=== PATIENT | male | born 1955 | race Caucasian/White ===

== ENCOUNTER 2017-10-22 01:41 | Emergency (ER) | payer BC, OTHER ==
[2017-10-22 02:20] LABS: #Eosinphils 0.1 thou/uL (0.0-0.7); #Lymphocytes 1.4 thou/uL (1.20-3.40); #Neutrophils 10.2 thou/uL (1.40-6.50); %Basophils 0.3 % (0.0-1.0); %Eosinophils 0.4 % (0.0-10.0); %Lymphocytes 11.3 % (21.0-51.0); %Monocytes 8.1 % (0.0-10.0); %Neutrophils 79.8 % (42.0-75.0); Hemoglobin 13.3 g/dL (14.0-18.0); Mean Corpuscular HGB CONC 33.8 g/dL (32.0-36.0); Mean Corpuscular Hemoglobin 30.7 pg (27.0-31.0); Mean Corpuscular Volume 90.6 fl (80.0-94.0); Mean Platelet Volume 8.8 fL (7.4-10.4); Platelet Count 184 thou/uL (130-400); RBC Distribution Width 13.6 % (11.5-14.5); Red Blood Cell (RBC) Count 4.34 mill/uL (4.70-6.10); White Blood Cell (WBC) Count 12.8 thou/uL (4.8-10.8)
[2017-10-22 02:28] LABS: INR-International Normal Ratio 1.1; PTT 33.3 SEC (22.9-36.1); Prothrombin Time 14.4 SEC (12.0-14.7)
[2017-10-22 02:39] LABS: ALT (SGPT) 15 U/L (8-55); AST (SGOT) 15 U/L (5-34); Albumin 4.1 g/dL (3.4-4.8); Alkaline Phosphatase 82 U/L (40-150); Anion Gap 12 mmol/L (10-20); BUN (Urea Nitrogen) 22 mg/dL (8.4-25.7); Bilirubin, Total 0.6 mg/dL (0.2-1.2); Calc. Creatinine Clearance 0 mL/min (70-130); Calcium 9.2 mg/dL (7.8-10.44); Carbon Dioxide 26 mmol/L (23-31); Chloride 102 mmol/L (98-107); Estimated GFR-MDRD 48; Globulin 3.2 g/dL (2.4-3.5); Glucose 167 mg/dL (80-115); Potassium 4.1 mmol/L (3.5-5.1); Protein, Total 7.3 g/dL (5.8-8.1); Sodium 136 mmol/L (136-145)
[2017-10-22 03:10] LABS: Bilirubin Negative (Negative); Blood, Urine Small (Negative); Clarity CLEAR (Clear); Glucose, Urine (Dipstick) Negative (Negative); Leukocyte Small (Negative); Nitrite Negative (Negative); Protein, Urine (Dipstick) Negative (Neg-Trace); Specific Gravity, Urine 1.019 (1.002-1.036); Urobilinogen 0.2 mg/dL (0.2-1.0)
[2017-10-22 03:12] LABS: Bacteria/HPF None Seen HPF (None Seen); Hyaline Casts/LPF 0-3 HYALINE CAST LPF (0-3 Hyaline); Squamous Epithelial None Seen HPF (0-3)
--- NOTE | 2017-10-22 07:46 | RAD ---
ABDOMEN 1 VIEW: HISTORY: Kidney stone. COMPARISON: None. FINDINGS: Catheter projects over the pelvis. Multiple calcifications projecting over the left renal shadow and right renal shadow with casting. IMPRESSION: 1. Findings suggestive of bilateral renal calculi. 2. No evidence of bowel obstruction. 3. Catheter projecting over the pelvis. POS: EDUARDO
== END 2017-10-22 03:35 | disposition home or self-care (01) ==
LOC: ERS 01:41
DX: N13.2 Hydronephrosis with renal and ureteral calculous obstruction (principal); I10 Essential (primary) hypertension; F32.9 Major depressive disorder, single episode, unspecified; Z87.891 Personal history of nicotine dependence; Z79.84 Long term (current) use of oral hypoglycemic drugs; Z79.899 Other long term (current) drug therapy
CPT/HCPCS: 36415; 74018; 80053; 81003; 81015; 85025; 85610; 85730; 87086

== ENCOUNTER 2023-12-17 08:00 | Inpatient (IN) | payer OTHER ==
[2023-12-20] MEDS ORDERED: Dexamethasone 4 mg/ml Vial ONE (07:02)
[2023-12-20] MEDS ORDERED: Bupivacaine PF 0.5% 30 ML VIAL ONE (07:02)
[2023-12-20] MEDS ORDERED: EPINEPHrine 1 MG/ML VIAL ONE (07:02)
[2023-12-20] MEDS ORDERED: Albumin 5% 500 ML ONE (07:02)
[2023-12-20] MEDS ORDERED: Heparin 10,000 UNITS/1 ML VIAL 30,000 UNITS in Sodium Chloride 0.9% 1,000 ML FS SCH (07:15)
[2023-12-20] MEDS ORDERED: Rocuronium Bromide 10 MG/ML (10ML VIAL) ONE ×2 (08:08→10:17)
[2023-12-20] MEDS ORDERED: Midazolam HCl 2 mg/2 ml Vial ONE ×3 (08:08→10:09)
[2023-12-20] MEDS ORDERED: Fentanyl 250 MCG/5 ML VIAL ONE (08:08)
[2023-12-20] MEDS ORDERED: PROPOFOL 20 ML ONE (08:08)
[2023-12-20] MEDS ORDERED: Thrombin 5000 UNITS/5 ML VIAL ONE (08:30)
[2023-12-20] MEDS ORDERED: Heparin 30,000 units/30 ml VIAL ONE (08:30)
[2023-12-20] MEDS ORDERED: Papaverine 60 MG/2 ML VIAL ONE (08:30)
[2023-12-20] MEDS ORDERED: Mannitol 12.5 GM/50 ML ONE (08:30)
[2023-12-20] MEDS ORDERED: Aminocaproic Acid 5 GM/20 ML VIAL ONE (08:30)
[2023-12-20] MEDS ORDERED: Potassium Chloride 60 mEq (30 mL) VIAL ONE (08:30)
[2023-12-20] MEDS ORDERED: Lidocaine 2% PF 100 mg/5 ml Syringe ONE (08:30)
[2023-12-20] MEDS ORDERED: Calcium Chloride 1 GM/10 ML Abboject SYRINGE ONE (08:30)
[2023-12-20] MEDS ORDERED: Cardioplegic Soln 1,000 ML BAG ONE (08:30)
[2023-12-20] MEDS ORDERED: Protamine Sulfate 250 MG/25 ML VIAL ONE (08:30)
[2023-12-20] MEDS ORDERED: Magnesium 5 GM/10 ML VIAL ONE (08:30)
[2023-12-20] MEDS ORDERED: Heparin 5,000 UNITS/ML VIAL ONE (08:30)
[2023-12-20] MEDS ORDERED: Sodium Bicarb 50 mEq/50 ML VIAL ONE (08:30)
[2023-12-20] MEDS ORDERED: Vancomycin 1 GM VIAL ONE (08:30)
[2023-12-20] MEDS ORDERED: CEFAZOLIN 1 GM VIAL ONE ×2 (08:40)
[2023-12-20] MEDS ORDERED: Labetalol HCl 100 MG/20 ML VIAL ONE ×2 (08:45→08:47)
[2023-12-20] MEDS ORDERED: PHENYLEPHRINE-NS 100 MCG/ML 10 ML SYRINGE ONE (08:46)
[2023-12-20] MEDS ORDERED: Phenylephrine 10 MG/ML VIAL ONE ×2 (08:46→09:44)
[2023-12-20] MEDS ORDERED: Heparin 10,000 UNITS/ 10 ML VIAL ONE (09:26)
[2023-12-20] MEDS ORDERED: Sodium Chloride 0.9% 100 ML ONE ×2 (09:44→12:12)
[2023-12-20] MEDS ORDERED: Insulin Regular 300 UNITS/3 ML VIAL ONE (11:04)
[2023-12-20] MEDS ORDERED: Ondansetron PF 4 MG/2 ML Vial ONE (12:13)
[2023-12-20] MEDS ORDERED: Ondansetron PF 4 MG/2 ML Vial IVP PRN (13:04)
[2023-12-20] MEDS ORDERED: Mag-Al 1200 mg/1200 mg/30 ML UDCUP PO PRN (13:04)
[2023-12-20] MEDS ORDERED: Bisacodyl 5 MG TAB PO PRN (13:04)
[2023-12-20] MEDS ORDERED: fentaNYL 50 mcg/mL 1 mL Vial SLOW IVP PRN (13:04)
[2023-12-20] MEDS ORDERED: Ipratropium/Albuterol 3 ML NEB NEB PRN (13:04)
[2023-12-20] MEDS ORDERED: Albumin 5% 12.5 GM (250 mL) BOT IVPB PRN (13:04)
[2023-12-20] MEDS ORDERED: HYDROcodone/Acetaminophen 5/325 mg Tablet PO PRN ×2 (13:04)
[2023-12-20] MEDS ORDERED: hydrALAZINE 20 MG/ML VIAL SLOW IVP PRN (13:04)
[2023-12-20] MEDS ORDERED: Promethazine HCl 25 MG/ML VIAL IM PRN (13:04)
[2023-12-20] MEDS ORDERED: Bisacodyl 10 MG SUPP PR PRN (13:04)
[2023-12-20] MEDS ORDERED: Guaifenesin DM 100-10/5 ML UDCUP PO PRN (13:04)
[2023-12-20 13:27] LABS: Base Excess (BEa) -6.5 mEq/L (-2.0 to +3.0); CO2 Tension 44.5 mmHg (35.0-45.0); Calcium, Ionized (arterial) 1.11 mmol/L (1.12-1.30); Carboxyhemoglobin (COHb) 0.6 gm% (0.0-3.0); Hematocrit-ABG 26 % (42.0-52.0); Hemoglobin (Hb) 8.9 g/dL (14.0-18.0); O2 Tension (PaO2), arterial 103.8 mmHg (> 70.0); Potassium - ABG Lab 4.15 mmol/L (3.70-5.30); pH, Arterial 7.271 (7.35-7.45)
[2023-12-20 13:29] LABS: Puncture Site Arterial Line
[2023-12-20 13:30] LABS: ALV-art Gradient 268.375 mmHg (0-20)
[2023-12-20] MEDS ORDERED: Glucagon 1 MG/ML KIT SC PRN (13:30)
[2023-12-20] MEDS ORDERED: Dextrose 50% Abboject 50 ML SYRINGE SLOW IVP PRN (13:30)
[2023-12-20] MEDS ORDERED: Dextrose 5% in Water 1,000 ML IV PRN (13:30)
[2023-12-20] MEDS: Albumin 5% 12.5 GM (250 mL) BOT IVPB PRN (13:35)
[2023-12-20 13:42] LABS: #Basophils 0.06 10x3/uL (0.0-0.2); %Basophils 0.4 % (0.0-1.0); %Eosinophils 0.7 % (0.0-10.0); %Lymphocytes 8.3 % (21.0-51.0); %Monocytes 10.7 % (0.0-10.0); %Neutrophils 77.7 % (42.0-75.0); Hematocrit 25.6 % (42.0-52.0); Hemoglobin 8.2 g/dL (14.0-18.0); Mean Corpuscular Hemoglobin 28.5 pg (27.0-31.0); Mean Corpuscular Volume 88.9 fL (78.0-98.0); Mean Platelet Volume 10.7 fL (7.4-10.4); Platelet Count 170 10x3/uL (130-400); RBC Distribution Width 14.8 % (11.5-14.5); Red Blood Cell (RBC) Count 2.88 mill/uL (4.70-6.10)
[2023-12-20] MEDS: NOREPINEPHRINE 8 MG/250 ML-D5W 250 ML IVPB PRN (13:45)
[2023-12-20] MEDS: Insulin Regular 300 UNITS/3 ML VIAL SC PRN (13:46)
[2023-12-20] MEDS: Magnesium 2 GM/50 ML(in water) 2 GM in Premix 1 BAG IVPB SCH (13:46)
[2023-12-20] MEDS: Sodium Chloride 0.9% 1,000 ML IV SCH (13:52)
[2023-12-20 14:02] LABS: INR-International Normal Ratio 1.4; Prothrombin Time 17.4 sec (12.0-14.7)
[2023-12-20 14:03] LABS: PTT 32.1 sec (22.9-36.1)
[2023-12-20 14:04] LABS: Anion Gap 9 mmol/L (10-20); BUN (Urea Nitrogen) 19 mg/dL (8.4-25.7); Calc. Creatinine Clearance 102 mL/min (70-130); Calcium 7.3 mg/dL (7.8-10.44); Carbon Dioxide 20 mmol/L (23-31); Chloride 115 mmol/L (98-107); Estimated GFR 86; Glucose 157 mg/dL (80-115); Potassium 4.2 mmol/L (3.5-5.1); Sodium 140 mmol/L (136-145)
[2023-12-20] MEDS: Acetaminophen 325 MG TAB PO SCH (15:23)
[2023-12-20] MEDS: Aspirin Chewable 81 MG TAB PO SCH (15:23)
[2023-12-20] MEDS: CEFAZOLIN 2 GM in Sodium Chloride 0.9% 100 ML IVPB SCH (16:28)
[2023-12-20] MEDS: Morphine 2 MG/ML VIAL SLOW IVP PRN (16:28)
[2023-12-20] MEDS: HUMULIN R 100 UNITS in Sodium Chloride 0.9% 100 ML IVPB SCH (16:40)
[2023-12-20 19:26] LABS: Actual Bicarbonate (HCO3a) 17.2 mEq/L (22-28); Base Excess (BEa) -8.1 mEq/L (-2.0 to +3.0); CO2 Tension 34.5 mmHg (35.0-45.0); Carboxyhemoglobin (COHb) 0.5 gm% (0.0-3.0); Hematocrit-ABG 26 % (42.0-52.0); O2 Tension (PaO2), arterial 141.8 mmHg (> 70.0); Potassium - ABG Lab 4.34 mmol/L (3.70-5.30); pH, Arterial 7.316 (7.35-7.45)
[2023-12-20 19:28] LABS: Puncture Site LINE
[2023-12-20 19:29] LABS: ALV-art Gradient 100.275 mmHg (0-20)
[2023-12-20 19:32] LABS: Hematocrit 25.9 % (42.0-52.0); Hemoglobin 8.1 g/dL (14.0-18.0)
[2023-12-20 19:39] LABS: Potassium 4.3 mmol/L (3.5-5.1)
[2023-12-20] MEDS: Post-Op Insulin Drip Protocol IVPB ONE (19:47)
[2023-12-20] MEDS: Sodium Bicarb 50 mEq/50 ML VIAL IVP SCH (19:50)
[2023-12-20] MEDS: fentaNYL 50 mcg/mL 1 mL Vial SLOW IVP PRN (20:19)
[2023-12-20] MEDS: Atorvastatin Calcium 20 MG TAB PO SCH (20:38)
[2023-12-20] MEDS: Famotidine/PF 20 mg/2ml Vial SLOW IVP SCH (20:59)
[2023-12-20 21:45] LABS: Actual Bicarbonate (HCO3a) 20.3 mEq/L (22-28); Base Excess (BEa) -3.9 mEq/L (-2.0 to +3.0); CO2 Tension 33.6 mmHg (35.0-45.0); Calcium, Ionized (arterial) 1.07 mmol/L (1.12-1.30); Carboxyhemoglobin (COHb) 0.7 gm% (0.0-3.0); Hematocrit-ABG 26 % (42.0-52.0); Hemoglobin (Hb) 8.7 g/dL (14.0-18.0); O2 Tension (PaO2), arterial 123.5 mmHg (> 70.0); Potassium - ABG Lab 4.15 mmol/L (3.70-5.30)
[2023-12-20 21:46] LABS: Puncture Site LINE
[2023-12-21] MEDS: Ketorolac Tromethamine 30 MG (1 mL) VIAL IVP SCH (05:58)
[2023-12-21 06:02] LABS: #Basophils Less than 0.03 10x3/uL (0.0-0.2); #Eosinphils Less than 0.03 10x3/uL (0.0-0.7); %Basophils 0.1 % (0.0-1.0); %Lymphocytes 5.4 % (21.0-51.0); %Monocytes 9.6 % (0.0-10.0); %Neutrophils 84.1 % (42.0-75.0); Hematocrit 23.7 % (42.0-52.0); Hemoglobin 7.6 g/dL (14.0-18.0); Mean Corpuscular HGB CONC 32.1 g/dL (32.0-36.0); Mean Corpuscular Volume 90.5 fL (78.0-98.0); Mean Platelet Volume 11.1 fL (7.4-10.4); Platelet Count 157 10x3/uL (130-400); RBC Distribution Width 14.8 % (11.5-14.5); Red Blood Cell (RBC) Count 2.62 mill/uL (4.70-6.10)
[2023-12-21 06:16] LABS: Anion Gap 13 mmol/L (10-20); BUN (Urea Nitrogen) 16 mg/dL (8.4-25.7); Calc. Creatinine Clearance 118 mL/min (70-130); Calcium 7.8 mg/dL (7.8-10.44); Carbon Dioxide 21 mmol/L (23-31); Chloride 111 mmol/L (98-107); Estimated GFR 93; Glucose 125 mg/dL (80-115); Sodium 141 mmol/L (136-145)
[2023-12-21] MEDS: Potassium Chloride 20 MEQ (100 mL) BAG IVPB PRN (06:45)
[2023-12-21] MEDS: Heparin 5,000 UNITS/ML VIAL SC SCH (07:28)
[2023-12-21] MEDS: Ezetimibe 10 MG TAB PO SCH (08:06)
[2023-12-21] MEDS: Aspirin 325 MG TAB PO SCH (08:07)
[2023-12-21] MEDS: BuPROPion XL 150 MG ER.TAB PO SCH (08:07)
[2023-12-21] MEDS: Tamsulosin HCl 0.4 MG CAP PO SCH (08:07)
[2023-12-21] MEDS: Magnesium 2 GM/50 ML(in water) 2 GM in Premix 1 BAG IVPB SCH (08:08)
[2023-12-21] MEDS: Insulin Glargine 30 UNITS/0.3 ML VIAL SC SCH (08:56)
[2023-12-21 09:02] VITALS: BMI 35.2
[2023-12-21] MEDS: Famotidine 20 MG TAB PO SCH (22:25)
[2023-12-22 04:45] LABS: #Basophils 0.03 10x3/uL (0.0-0.2); #Eosinphils Less than 0.03 10x3/uL (0.0-0.7); %Basophils 0.3 % (0.0-1.0); %Eosinophils 0.1 % (0.0-10.0); %Lymphocytes 10.8 % (21.0-51.0); %Monocytes 14.7 % (0.0-10.0); %Neutrophils 73.4 % (42.0-75.0); Hematocrit 22.6 % (42.0-52.0); Hemoglobin 7.1 g/dL (14.0-18.0); Mean Corpuscular HGB CONC 31.4 g/dL (32.0-36.0); Mean Corpuscular Hemoglobin 28.3 pg (27.0-31.0); Mean Platelet Volume 11.5 fL (7.4-10.4); Platelet Count 149 10x3/uL (130-400); RBC Distribution Width 15.1 % (11.5-14.5); Red Blood Cell (RBC) Count 2.51 mill/uL (4.70-6.10)
[2023-12-22 04:48] LABS: Anion Gap 11 mmol/L (10-20); BUN (Urea Nitrogen) 25 mg/dL (8.4-25.7); Calc. Creatinine Clearance 94 mL/min (70-130); Calcium 8.1 mg/dL (7.8-10.44); Carbon Dioxide 21 mmol/L (23-31); Chloride 110 mmol/L (98-107); Estimated GFR 76; Glucose 189 mg/dL (80-115); Sodium 138 mmol/L (136-145)
[2023-12-22] MEDS: Furosemide 20 MG (2 mL) VIAL SLOW IVP SCH ×2 (11:41→14:52)
[2023-12-22] MEDS: metFORMIN 500 MG TAB PO SCH (16:53)
[2023-12-22] MEDS: Metoprolol Tartrate 25 MG TAB PO SCH (21:23)
[2023-12-22] MEDS: Gabapentin 300 MG CAP PO SCH (21:23)
[2023-12-23 05:08] LABS: #Basophils 0.03 10x3/uL (0.0-0.2); %Basophils 0.3 % (0.0-1.0); %Eosinophils 1.6 % (0.0-10.0); %Lymphocytes 13.1 % (21.0-51.0); %Monocytes 13.9 % (0.0-10.0); %Neutrophils 70.3 % (42.0-75.0); Hematocrit 23.4 % (42.0-52.0); Hemoglobin 7.4 g/dL (14.0-18.0); Mean Corpuscular HGB CONC 31.6 g/dL (32.0-36.0); Mean Corpuscular Hemoglobin 28.1 pg (27.0-31.0); Mean Platelet Volume 11.3 fL (7.4-10.4); Platelet Count 173 10x3/uL (130-400); RBC Distribution Width 14.9 % (11.5-14.5); Red Blood Cell (RBC) Count 2.63 mill/uL (4.70-6.10)
[2023-12-23 05:19] LABS: Anion Gap 13 mmol/L (10-20); BUN (Urea Nitrogen) 32 mg/dL (8.4-25.7); Calc. Creatinine Clearance 88 mL/min (70-130); Calcium 8.2 mg/dL (7.8-10.44); Carbon Dioxide 22 mmol/L (23-31); Chloride 108 mmol/L (98-107); Estimated GFR 68; Glucose 129 mg/dL (80-115); Potassium 3.8 mmol/L (3.5-5.1); Sodium 139 mmol/L (136-145)
[2023-12-23] MEDS: glipiZIDE XL 10 mg ER.TAB PO SCH (08:58)
[2023-12-23] MEDS: Cyanocobalamin (Vitamin B-12) 1,000 MCG TAB PO SCH (08:59)
[2023-12-23] MEDS: Ferrous Sulfate 325 MG TAB PO SCH (09:00)
[2023-12-23] MEDS: Amiodarone 200 MG TAB PO SCH ×2 (16:37→20:56)
[2023-12-24 11:47] VITALS: BP 121/55; TEMP 97.9
== END 2023-12-24 12:13 | disposition home or self-care (01) | DRG 236 ==
LOC: SURG A 12-20 06:52 → EDSTATUS 12-20 08:00 → CCU 12-20 12:33 → 2NO 12-21 15:10
PROVIDERS: ADMIT Student in an Organized Health Care Education/Training Program; ATTEND Student in an Organized Health Care Education/Training Program
PROC: 02100Z9 Bypass Coronary Artery, One Artery from Left Internal Mammary, Open Approach (ICD-10-PCS; principal; 2023-12-20)
PROC: 021109W Bypass Coronary Artery, Two Arteries from Aorta with Autologous Venous Tissue, Open Approach (ICD-10-PCS; 2023-12-20)
PROC: 06BQ4ZZ Excision of Left Saphenous Vein, Percutaneous Endoscopic Approach (ICD-10-PCS; 2023-12-20)
PROC: 02L70CK Occlusion of Left Atrial Appendage with Extraluminal Device, Open Approach (ICD-10-PCS; 2023-12-20)
PROC: 5A1221Z Performance of Cardiac Output, Continuous (ICD-10-PCS; 2023-12-20)
PROC: 4A133R1 Monitoring of Arterial Saturation, Peripheral, Percutaneous Approach (ICD-10-PCS; 2023-12-20)
PROC: 3E033XZ Introduction of Vasopressor into Peripheral Vein, Percutaneous Approach (ICD-10-PCS; 2023-12-20)
PROC: 30233J1 Transfusion of Nonautologous Serum Albumin into Peripheral Vein, Percutaneous Approach (ICD-10-PCS; 2023-12-20)
PROC: 5A09457 Assistance with Respiratory Ventilation, 24-96 Consecutive Hours, Continuous Positive Airway Pressure (ICD-10-PCS; 2023-12-21)
DX: I25.118 Atherosclerotic heart disease of native coronary artery with other forms of angina pectoris (principal); I97.89 Other postprocedural complications and disorders of the circulatory system, not elsewhere classified; E78.5 Hyperlipidemia, unspecified; G47.33 Obstructive sleep apnea (adult) (pediatric); F32.A Depression, unspecified; E11.42 Type 2 diabetes mellitus with diabetic polyneuropathy; M19.90 Unspecified osteoarthritis, unspecified site; F41.9 Anxiety disorder, unspecified; I12.9 Hypertensive chronic kidney disease with stage 1 through stage 4 chronic kidney disease, or unspecified chronic kidney disease; N18.9 Chronic kidney disease, unspecified; E11.22 Type 2 diabetes mellitus with diabetic chronic kidney disease; I48.91 Unspecified atrial fibrillation; Z86.73 Personal history of transient ischemic attack (TIA), and cerebral infarction without residual deficits; Z82.49 Family history of ischemic heart disease and other diseases of the circulatory system; Z79.899 Other long term (current) drug therapy; Z88.0 Allergy status to penicillin; Z88.2 Allergy status to sulfonamides
CPT/HCPCS: 36415; 36416; 36430; 71045; 80048; 82805; 85025; 85610; 85730; 86850; 86900; 86901; 93005; 93010; 93798; 94002; A4311; A4648; C1751; J0171; J0665; J0690; J1100; J1642; J1644; J1815; J1885; J1940; J2001; J2150; J2250; J2272; J2371; J2405; J2440; J2704; J2720; J3010; J3370; J3475; J3480; J3490; J7050; P9045; S0017; S0028

== ENCOUNTER 2023-12-17 08:16 | Outpatient (CLI) | payer OTHER ==
[2023-12-17 10:04] LABS: Hematocrit 37.3 % (38.8-50.0); Hemoglobin 11.8 g/dL (13.5-17.5); Mean Corpuscular HGB CONC 31.6 g/dL (32.0-36.0); Mean Corpuscular Hemoglobin 28.1 pg (27.0-33.0); Mean Corpuscular Volume 88.8 fl (81.2-95.1); Mean Platelet Volume 11.1 fl (7.4-10.4); Platelet Count 229 10x3/uL (150-450); RBC Distribution Width 15.1 % (11.5-14.5)
[2023-12-17 10:59] LABS: Anion Gap 13 mmol/L (10-20); BUN (Urea Nitrogen) 25 mg/dL (8.4-25.7); Calc. Creatinine Clearance 0 mL/min (70-130); Calcium 9.4 mg/dL (7.8-10.44); Carbon Dioxide 24 mmol/L (23-31); Chloride 105 mmol/L (98-107); Estimated GFR 70; Glucose 168 mg/dL (80-115); Potassium 4.7 mmol/L (3.5-5.1); Sodium 137 mmol/L (136-145)
== END 2023-12-17 08:17 | disposition home or self-care (01) ==
LOC: LABBT 08:16
PROVIDERS: ATTEND Student in an Organized Health Care Education/Training Program
DX: Z01.818 Encounter for other preprocedural examination (principal); I25.10 Atherosclerotic heart disease of native coronary artery without angina pectoris
CPT/HCPCS: 71046; 80048; 85027; 93005; 93010

== ENCOUNTER 2024-01-27 18:26 | Inpatient (IN) | payer MEDICARE ==
[~2024-01-27 18:26] MED LIST: Iopamidol-370 76% 500 ML MDV (1 ML CHARGE) ONE
[2024-01-27] MEDS ORDERED: Pantoprazole 40 MG VIAL ONE (18:46)
[2024-01-27 18:52] LABS: #Basophils 0.03 10x3/uL (0.0-0.2); %Basophils 0.2 % (0.0-1.0); %Eosinophils 0.2 % (0.0-10.0); %Lymphocytes 1.7 % (21.0-51.0); %Monocytes 4.4 % (0.0-10.0); %Neutrophils 92.6 % (42.0-75.0); Hematocrit 33.3 % (42.0-52.0); Hemoglobin 10.7 g/dL (14.0-18.0); Mean Corpuscular HGB CONC 32.1 g/dL (32.0-36.0); Mean Corpuscular Hemoglobin 28.5 pg (27.0-31.0); Mean Corpuscular Volume 88.6 fL (78.0-98.0); Mean Platelet Volume 10.2 fL (7.4-10.4); Platelet Count 341 10x3/uL (130-400); RBC Distribution Width 15.3 % (11.5-14.5); Red Blood Cell (RBC) Count 3.76 mill/uL (4.70-6.10)
[2024-01-27] MEDS ORDERED: Sodium Chloride 0.9% 100 ML ONE (18:58)
[2024-01-27] MEDS ORDERED: Cefepime 2 GM VIAL ONE (18:58)
[2024-01-27] MEDS ORDERED: Pantoprazole 80 MG in Sodium Chloride 0.9% 100 ML IVPB SCH ×2 (19:00→22:00)
[2024-01-27 19:05] LABS: Globulin 3.6 g/dL (2.4-3.5)
[2024-01-27 19:09] LABS: ALT (SGPT) 32 U/L (8-55); AST (SGOT) 30 U/L (5-34); Albumin 2.2 g/dL (3.4-4.8); Alkaline Phosphatase 133 U/L (40-110); Anion Gap 19 mmol/L (10-20); BUN (Urea Nitrogen) 27 mg/dL (8.4-25.7); Bilirubin, Total 2.5 mg/dL (0.2-1.2); Calc. Creatinine Clearance 0 mL/min (70-130); Calcium 8.4 mg/dL (7.8-10.44); Carbon Dioxide 19 mmol/L (23-31); Chloride 103 mmol/L (98-107); Estimated GFR 58; Glucose 114 mg/dL (80-115); Lipase 41 U/L (8-78); Protein, Total 5.8 g/dL (5.8-8.1); Sodium 138 mmol/L (136-145)
[2024-01-27 19:12] LABS: Troponin I 0.026 ng/mL (< 0.028)
[2024-01-27 19:41] LABS: INR-International Normal Ratio 1.4; PTT 32.3 sec (22.9-36.1); Prothrombin Time 17.4 sec (12.0-14.7)
[2024-01-27] MEDS ORDERED: Potassium Chloride 20 MEQ (100 mL) BAG ONE (20:20)
[2024-01-27] MEDS ORDERED: Dexamethasone 10 MG/ML VIAL ONE (20:20)
[2024-01-27] MEDS ORDERED: Ondansetron PF 4 MG/2 ML Vial ONE (21:09)
[2024-01-27] MEDS ORDERED: fentaNYL 50 mcg/mL 1 mL Vial ONE (21:09)
[2024-01-27] MEDS ORDERED: NOREPINEPHRINE 8 MG/250 ML-D5W 250 ML IVPB PRN (21:53)
[2024-01-27] MEDS ORDERED: Electrolyte Replacement Protocol 1 EACH IVPB PRN (21:53)
[2024-01-27] MEDS ORDERED: Acetaminophen 650 MG Suppository PR PRN (22:17)
[2024-01-27] MEDS ORDERED: Ondansetron PF 4 MG/2 ML Vial IVP PRN (22:17)
[2024-01-27] MEDS ORDERED: Acetaminophen 325 MG TAB PO PRN (22:17)
[2024-01-27 22:28] LABS: Lactic Acid 2.4 mmol/L (0.5-2.2)
[2024-01-27] MEDS: Dextrose 5%-Lactated Ringers 1,000 ML IV SCH (22:30)
[2024-01-27 22:35] LABS: Troponin I 0.024 ng/mL (< 0.028)
[2024-01-27] MEDS: fentaNYL 50 mcg/mL 1 mL Vial SLOW IVP PRN (23:01)
[2024-01-27 23:15] LABS: Bilirubin Negative (Negative); Blood, Urine 1+ (Negative); CAUTI Indications for Culture Dysuria,urgency,freq; Clarity Turbid (Clear); Glucose, Urine (Dipstick) Normal (Negative); Ketone, Urine Negative (Negative); Leukocyte 250 Leu/uL (Negative); Nitrite Negative (Negative); Protein, Urine (Dipstick) 30 mg/dL (Neg-Trace); RBC/HPF 21-50 HPF (0-3); Specific Gravity, Urine 1.022 (1.002-1.036); Squamous Epithelial 0-3 HPF (0-3); pH, Urine 5.5 (5.0-9.0)
[2024-01-27 23:17] LABS: Bacteria/HPF Rare-Few HPF (None Seen)
[2024-01-27 23:18] LABS: Urine Culture Reflex Yes Yes
[2024-01-28] MEDS: Vancomycin (BATCH) 2 GM in Premix 1 BAG IVPB SCH (00:01)
[2024-01-28 00:08] LABS: Hemoglobin 10.9 g/dL (14.0-18.0)
[2024-01-28 01:35] LABS: Troponin I 0.018 ng/mL (< 0.028)
[2024-01-28] MEDS: Potassium Chloride 20 MEQ in Premix 1 BAG IVPB SCH (02:43)
[2024-01-28 05:32] LABS: #Basophils Less than 0.03 10x3/uL (0.0-0.2); #Eosinphils Less than 0.03 10x3/uL (0.0-0.7); %Basophils 0.1 % (0.0-1.0); %Lymphocytes 2.3 % (21.0-51.0); %Neutrophils 92.9 % (42.0-75.0); Hemoglobin 11.2 g/dL (14.0-18.0); Mean Corpuscular HGB CONC 32.9 g/dL (32.0-36.0); Mean Corpuscular Hemoglobin 28.2 pg (27.0-31.0); Mean Corpuscular Volume 85.6 fL (78.0-98.0); Mean Platelet Volume 9.9 fL (7.4-10.4); Platelet Count 286 10x3/uL (130-400); RBC Distribution Width 15.8 % (11.5-14.5); Red Blood Cell (RBC) Count 3.97 mill/uL (4.70-6.10)
[2024-01-28] MEDS ORDERED: Pantoprazole 80 MG, Admixture Fee 1 EACH in Sodium Chloride 0.9% 100 ML IVPB SCH (05:45)
[2024-01-28 06:28] LABS: Globulin 3.6 g/dL (2.4-3.5)
[2024-01-28 06:32] LABS: ALT (SGPT) 26 U/L (8-55); AST (SGOT) 30 U/L (5-34); Alkaline Phosphatase 101 U/L (40-110); Anion Gap 13 mmol/L (10-20); BUN (Urea Nitrogen) 28 mg/dL (8.4-25.7); Bilirubin, Total 3.2 mg/dL (0.2-1.2); Calc. Creatinine Clearance 100 mL/min (70-130); Calcium 8.1 mg/dL (7.8-10.44); Carbon Dioxide 20 mmol/L (23-31); Chloride 110 mmol/L (98-107); Estimated GFR 81; Glucose 165 mg/dL (80-115); Potassium 4.2 mmol/L (3.5-5.1); Protein, Total 5.6 g/dL (5.8-8.1); Sodium 139 mmol/L (136-145)
[2024-01-28 07:08] LABS: Vancomycin, Random 13.7 ug/mL (See Comment)
[2024-01-28] MEDS: Vancomycin HCl 750 MG in Sodium Chloride 0.9% 250 ML 250 ML IVPB SCH (08:22)
[2024-01-28] MEDS: Cefepime 1 GM in Sodium Chloride 0.9% 100 ML IVPB SCH (08:22)
[2024-01-28] MEDS ORDERED: Glucagon 1 MG/ML KIT IM PRN (08:35)
[2024-01-28] MEDS ORDERED: HumaLOG 300 UNITS/3 ML VIAL SC PRN (08:35)
[2024-01-28] MEDS ORDERED: Dextrose 5% in Water 1,000 ML IV PRN (08:35)
[2024-01-28] MEDS ORDERED: Vancomycin (BATCH) 1.5 GM in Premix 1 BAG IVPB SCH (09:00)
[2024-01-28] MEDS: HumaLOG 300 UNITS/3 ML VIAL SC PRN (11:24)
[2024-01-28] MEDS: Morphine 4 MG/ML VIAL SLOW IVP PRN (11:25)
[2024-01-28 14:08] LABS: #Basophils Less than 0.03 10x3/uL (0.0-0.2); #Eosinphils Less than 0.03 10x3/uL (0.0-0.7); %Basophils 0.1 % (0.0-1.0); %Monocytes 5.7 % (0.0-10.0); Hematocrit 32.6 % (42.0-52.0); Hemoglobin 10.8 g/dL (14.0-18.0); Mean Corpuscular HGB CONC 33.1 g/dL (32.0-36.0); Mean Corpuscular Hemoglobin 27.9 pg (27.0-31.0); Mean Corpuscular Volume 84.2 fL (78.0-98.0); Mean Platelet Volume 10.2 fL (7.4-10.4); Platelet Count 312 10x3/uL (130-400); RBC Distribution Width 16.1 % (11.5-14.5); Red Blood Cell (RBC) Count 3.87 mill/uL (4.70-6.10)
[2024-01-28] MEDS: Vancomycin 1 GM in Premix 1 BAG IVPB SCH (20:34)
[2024-01-28] MEDS: Atorvastatin Calcium 20 MG TAB PO SCH (20:41)
[2024-01-28] MEDS: Amiodarone 200 MG TAB PO SCH (20:41)
[2024-01-28] MEDS: Pantoprazole 40 MG VIAL IVP SCH (20:42)
[2024-01-28] MEDS ORDERED: Pantoprazole DR 40 MG TAB PO SCH (21:00)
[2024-01-28] MEDS: Cefepime 2 GM in Sodium Chloride 0.9% 100 ML IVPB SCH (21:50)
[2024-01-29 05:00] LABS: #Basophils Less than 0.03 10x3/uL (0.0-0.2); #Eosinphils Less than 0.03 10x3/uL (0.0-0.7); %Basophils 0.1 % (0.0-1.0); %Eosinophils 0.1 % (0.0-10.0); %Lymphocytes 2.9 % (21.0-51.0); %Monocytes 5.8 % (0.0-10.0); %Neutrophils 89.9 % (42.0-75.0); Hematocrit 31.2 % (42.0-52.0); Hemoglobin 10.3 g/dL (14.0-18.0); Mean Corpuscular Hemoglobin 28.5 pg (27.0-31.0); Mean Corpuscular Volume 86.4 fL (78.0-98.0); Mean Platelet Volume 10.2 fL (7.4-10.4); Platelet Count 357 10x3/uL (130-400); RBC Distribution Width 15.9 % (11.5-14.5); Red Blood Cell (RBC) Count 3.61 mill/uL (4.70-6.10)
[2024-01-29 05:33] LABS: Globulin 3.5 g/dL (2.4-3.5)
[2024-01-29 05:34] LABS: Vancomycin, Random 12.7 ug/mL (See Comment)
[2024-01-29 05:37] LABS: ALT (SGPT) 19 U/L (8-55); AST (SGOT) 21 U/L (5-34); Albumin 1.8 g/dL (3.4-4.8); Alkaline Phosphatase 84 U/L (40-110); Anion Gap 14 mmol/L (10-20); BUN (Urea Nitrogen) 29 mg/dL (8.4-25.7); Bilirubin, Total 1.8 mg/dL (0.2-1.2); Calc. Creatinine Clearance 122 mL/min (70-130); Calcium 8.3 mg/dL (7.8-10.44); Carbon Dioxide 20 mmol/L (23-31); Chloride 108 mmol/L (98-107); Estimated GFR 95; Glucose 125 mg/dL (80-115); Potassium 3.5 mmol/L (3.5-5.1); Protein, Total 5.3 g/dL (5.8-8.1); Sodium 138 mmol/L (136-145)
[2024-01-29] MEDS ORDERED: Sodium Chloride 0.9% 250 ML 250 ML ONE (07:37)
[2024-01-29] MEDS ORDERED: Phenylephrine 10 MG/ML VIAL ONE (07:38)
[2024-01-29] MEDS ORDERED: PROPOFOL 20 ML ONE (07:40)
[2024-01-29] MEDS ORDERED: fentaNYL PF 100 MCG/2 ML SYRINGE ONE (07:40)
[2024-01-29] MEDS ORDERED: Lidocaine 2% PF 5 ML VIAL ONE (07:41)
[2024-01-29] MEDS ORDERED: Rocuronium Bromide 10 MG/ML (10ML VIAL) ONE ×2 (07:42→10:25)
[2024-01-29] MEDS: Ezetimibe 10 MG TAB PO SCH (07:46)
[2024-01-29] MEDS: Tamsulosin HCl 0.4 MG CAP PO SCH (07:47)
[2024-01-29] MEDS: Potassium Chloride 20 MEQ in Premix 1 BAG IVPB SCH (07:49)
[2024-01-29] MEDS ORDERED: Ondansetron PF 4 MG/2 ML Vial IVP PRN (09:54)
[2024-01-29] MEDS ORDERED: Ondansetron HCl/PF 4 MG/2 ML Vial IVP PRN (09:54)
[2024-01-29] MEDS ORDERED: PACU-Morphine 4MG/ML VIAL SLOW IVP PRN (09:54)
[2024-01-29] MEDS ORDERED: diphenhydrAMINE 50 MG/ML VIAL IVP PRN (09:54)
[2024-01-29] MEDS ORDERED: Promethazine HCl 25 MG/ML VIAL IM PRN ×2 (09:54)
[2024-01-29] MEDS ORDERED: HYDROmorphone 2 MG/ML VIAL SLOW IVP PRN (09:54)
[2024-01-29] MEDS ORDERED: diphenhydrAMINE 50 MG/ML VIAL IM PRN (09:54)
[2024-01-29] MEDS ORDERED: diphenhydrAMINE 25 MG CAP PO PRN (09:54)
[2024-01-29] MEDS ORDERED: Naloxone HCl 0.4 mg/ml Vial IV PRN (09:54)
[2024-01-29] MEDS ORDERED: Communication Order-Pharmacy FS SCH (10:00)
[2024-01-29] MEDS ORDERED: Sodium Chloride 0.9% 100 ML ONE (10:08)
[2024-01-29] MEDS ORDERED: ePHEDrine Sulfate 50 MG/10 ML VIAL ONE (10:40)
[2024-01-29] MEDS ORDERED: SUGAMMADEX SODIUM 200 MG/2 ML VIAL ONE (11:27)
[2024-01-29] MEDS: Lactated Ringer's 1,000 ML IV SCH ×3 (18:05→21:23)
[2024-01-29 18:07] LABS: Hematocrit 39.2 % (42.0-52.0)
[2024-01-29] MEDS: Vancomycin (BATCH) 1.5 GM in Premix 1 BAG IVPB SCH (20:47)
[2024-01-30 05:55] LABS: #Basophils 0.03 10x3/uL (0.0-0.2); %Basophils 0.2 % (0.0-1.0); %Eosinophils 1.1 % (0.0-10.0); %Monocytes 7.4 % (0.0-10.0); %Neutrophils 84.4 % (42.0-75.0); Hematocrit 35.6 % (42.0-52.0); Hemoglobin 11.4 g/dL (14.0-18.0); Mean Corpuscular Hemoglobin 27.9 pg (27.0-31.0); Mean Corpuscular Volume 87.3 fL (78.0-98.0); Mean Platelet Volume 10.2 fL (7.4-10.4); Platelet Count 427 10x3/uL (130-400); RBC Distribution Width 16.4 % (11.5-14.5); Red Blood Cell (RBC) Count 4.08 mill/uL (4.70-6.10)
[2024-01-30 06:12] LABS: Vancomycin, Random 21.3 ug/mL (See Comment)
[2024-01-30 06:19] LABS: Globulin 3.4 g/dL (2.4-3.5)
[2024-01-30 06:35] LABS: ALT (SGPT) 16 U/L (8-55); AST (SGOT) 22 U/L (5-34); Albumin 1.5 g/dL (3.4-4.8); Alkaline Phosphatase 75 U/L (40-110); Anion Gap 14 mmol/L (10-20); BUN (Urea Nitrogen) 42 mg/dL (8.4-25.7); Bilirubin, Total 4.4 mg/dL (0.2-1.2); Calc. Creatinine Clearance 75 mL/min (70-130); Carbon Dioxide 20 mmol/L (23-31); Chloride 108 mmol/L (98-107); Estimated GFR 55; Glucose 200 mg/dL (80-115); Potassium 4.5 mmol/L (3.5-5.1); Protein, Total 4.9 g/dL (5.8-8.1); Sodium 137 mmol/L (136-145)
[2024-01-30] MEDS: metroNIDAZOLE 500 MG in Premix 1 BAG IVPB SCH (14:27)
[2024-01-30] MEDS: Cefepime 1 GM in Sodium Chloride 0.9% 100 ML IVPB SCH (20:45)
[2024-01-30] MEDS: HYDROmorphone/PF 10 MG in Sodium Chloride 0.9% 99 ML IV PRN (22:25)
[2024-01-31 06:01] LABS: #Basophils 0.04 10x3/uL (0.0-0.2); %Basophils 0.4 % (0.0-1.0); %Eosinophils 5.4 % (0.0-10.0); %Lymphocytes 3.9 % (21.0-51.0); %Monocytes 8.3 % (0.0-10.0); %Neutrophils 78.2 % (42.0-75.0); Hematocrit 32.4 % (42.0-52.0); Hemoglobin 10.3 g/dL (14.0-18.0); Mean Corpuscular HGB CONC 31.8 g/dL (32.0-36.0); Mean Corpuscular Hemoglobin 28.1 pg (27.0-31.0); Mean Corpuscular Volume 88.3 fL (78.0-98.0); Mean Platelet Volume 10.3 fL (7.4-10.4); Platelet Count 403 10x3/uL (130-400); RBC Distribution Width 16.1 % (11.5-14.5); Red Blood Cell (RBC) Count 3.67 mill/uL (4.70-6.10)
[2024-01-31 06:18] LABS: Globulin 3.6 g/dL (2.4-3.5)
[2024-01-31 06:22] LABS: ALT (SGPT) 18 U/L (8-55); AST (SGOT) 37 U/L (5-34); Albumin 1.4 g/dL (3.4-4.8); Alkaline Phosphatase 81 U/L (40-110); Anion Gap 13 mmol/L (10-20); BUN (Urea Nitrogen) 41 mg/dL (8.4-25.7); Calc. Creatinine Clearance 83 mL/min (70-130); Carbon Dioxide 22 mmol/L (23-31); Chloride 109 mmol/L (98-107); Estimated GFR 61; Glucose 125 mg/dL (80-115); Potassium 3.9 mmol/L (3.5-5.1); Sodium 140 mmol/L (136-145)
[2024-01-31 06:27] LABS: Vancomycin, Random 16.3 ug/mL (See Comment)
[2024-01-31] MEDS: Vancomycin (BATCH) 1.75 GM in Premix 1 BAG IVPB SCH (09:04)
[2024-01-31 09:35] LABS: Bilirubin, Direct 3.8 mg/dL (0.1-0.3)
[2024-01-31] MEDS: Lactated Ringer's 1,000 ML IV SCH (14:42)
[2024-02-01 08:20] LABS: ALT (SGPT) 17 U/L (8-55); AST (SGOT) 34 U/L (5-34); Albumin 1.4 g/dL (3.4-4.8); Alkaline Phosphatase 88 U/L (40-110); Anion Gap 13 mmol/L (10-20); BUN (Urea Nitrogen) 33 mg/dL (8.4-25.7); Bilirubin, Total 4.6 mg/dL (0.2-1.2); Calc. Creatinine Clearance 93 mL/min (70-130); Carbon Dioxide 23 mmol/L (23-31); Chloride 109 mmol/L (98-107); Estimated GFR 70; Globulin 3.7 g/dL (2.4-3.5); Glucose 80 mg/dL (80-115); Potassium 3.5 mmol/L (3.5-5.1); Protein, Total 5.1 g/dL (5.8-8.1); Sodium 141 mmol/L (136-145)
[2024-02-01] MEDS: Enoxaparin 30 MG (0.3 mL) SYRINGE SC SCH (09:06)
[2024-02-01 09:53] LABS: Hematocrit 33.2 % (42.0-52.0); Hemoglobin 10.3 g/dL (14.0-18.0); Mean Corpuscular Hemoglobin 27.5 pg (27.0-31.0); Mean Corpuscular Volume 88.5 fL (78.0-98.0); Mean Platelet Volume 10.4 fL (7.4-10.4); Platelet Count 414 10x3/uL (130-400); Red Blood Cell (RBC) Count 3.75 mill/uL (4.70-6.10)
[2024-02-01 11:15] LABS: Anisocytosis SLIGHT = 6-15 cells HPF (0-5); Band 3 % (5-11); Eosinophils 5 % (0-10); Lymphocytes 2 % (21-51); Monocytes 5 % (0-10); Neutrophil 84 % (42-75); Platelet Adequacy Comment Platelets Increased; Poikilocytosis SLIGHT = 6-15 cells HPF (0-5); Polychromasia SLIGHT = 2-3 cells HPF (0-2); Smudge Cells 16.8 %
[2024-02-01] MEDS: Cefepime 2 GM in Sodium Chloride 0.9% 100 ML IVPB SCH (21:58)
[2024-02-02 06:21] LABS: Hematocrit 33.7 % (42.0-52.0); Hemoglobin 10.6 g/dL (14.0-18.0); Mean Corpuscular HGB CONC 31.5 g/dL (32.0-36.0); Mean Corpuscular Volume 88.9 fL (78.0-98.0); Mean Platelet Volume 10.3 fL (7.4-10.4); Platelet Count 433 10x3/uL (130-400); RBC Distribution Width 15.9 % (11.5-14.5); Red Blood Cell (RBC) Count 3.79 mill/uL (4.70-6.10)
[2024-02-02 06:48] LABS: Vancomycin, Random 22.8 ug/mL (See Comment)
[2024-02-02 06:50] LABS: Anion Gap 12 mmol/L (10-20); BUN (Urea Nitrogen) 29 mg/dL (8.4-25.7); Calc. Creatinine Clearance 108 mL/min (70-130); Calcium 7.7 mg/dL (7.8-10.44); Carbon Dioxide 23 mmol/L (23-31); Chloride 109 mmol/L (98-107); Estimated GFR 82; Glucose 72 mg/dL (80-115); Potassium 3.3 mmol/L (3.5-5.1); Sodium 141 mmol/L (136-145)
[2024-02-03 09:02] LABS: Anion Gap 12 mmol/L (10-20); BUN (Urea Nitrogen) 26 mg/dL (8.4-25.7); Calc. Creatinine Clearance 114 mL/min (70-130); Calcium 7.6 mg/dL (7.8-10.44); Carbon Dioxide 24 mmol/L (23-31); Chloride 108 mmol/L (98-107); Estimated GFR 87; Glucose 168 mg/dL (80-115); Potassium 3.4 mmol/L (3.5-5.1); Sodium 141 mmol/L (136-145)
[2024-02-03] MEDS: Potassium Chloride 20 MEQ TAB PO SCH (12:08)
[2024-02-03] MEDS: BuPROPion XL 150 MG ER.TAB PO SCH (12:08)
[2024-02-03] MEDS: Acetaminophen 500 MG TAB PO SCH (12:08)
[2024-02-03] MEDS ORDERED: traMADol HCl 50 MG TAB PO PRN (12:34)
[2024-02-03] MEDS: Metoprolol Tartrate 25 MG TAB PO SCH (20:06)
[2024-02-03] MEDS: metFORMIN 500 MG TAB PO SCH (20:06)
[2024-02-03] MEDS: Enoxaparin 40 MG (0.4 mL) SYRINGE SC SCH (20:07)
[2024-02-03] MEDS: Gabapentin 300 MG CAP PO SCH (20:10)
[2024-02-03] MEDS ORDERED: Pantoprazole DR 40 MG TAB PO SCH (21:00)
[2024-02-03] MEDS ORDERED: Gabapentin 300 MG CAP PO SCH (21:00)
[2024-02-04 05:44] LABS: Hematocrit 34.7 % (42.0-52.0); Hemoglobin 11.1 g/dL (14.0-18.0); Mean Corpuscular Volume 84.4 fL (78.0-98.0); Mean Platelet Volume 10.2 fL (7.4-10.4); Platelet Count 403 10x3/uL (130-400); RBC Distribution Width 15.8 % (11.5-14.5); Red Blood Cell (RBC) Count 4.11 mill/uL (4.70-6.10)
[2024-02-04 06:06] LABS: ALT (SGPT) 22 U/L (8-55); AST (SGOT) 45 U/L (5-34); Albumin 1.4 g/dL (3.4-4.8); Alkaline Phosphatase 118 U/L (40-110); Anion Gap 11 mmol/L (10-20); BUN (Urea Nitrogen) 23 mg/dL (8.4-25.7); Bilirubin, Total 2.8 mg/dL (0.2-1.2); Calc. Creatinine Clearance 118 mL/min (70-130); Calcium 7.3 mg/dL (7.8-10.44); Carbon Dioxide 23 mmol/L (23-31); Chloride 105 mmol/L (98-107); Estimated GFR 91; Globulin 3.5 g/dL (2.4-3.5); Glucose 143 mg/dL (83-110); Magnesium 1.5 mg/dL (1.6-2.6); Potassium 3.3 mmol/L (3.5-5.1); Protein, Total 4.9 g/dL (5.8-8.1); Sodium 136 mmol/L (136-145)
[2024-02-04 06:26] LABS: Band 10 % (5-11); Hypochromia SLIGHT = 6-15 cells HPF (0-5); Lymphocytes 2 % (21-51); Neutrophil 83 % (42-75); Platelet Adequacy Comment Platelets Normal; Polychromasia SLIGHT = 2-3 cells HPF (0-2); Promyelocytes 2 % (0-0); Reactive Lymphocytes 2 % (0-10)
[2024-02-04] MEDS: Potassium Chloride 20 MEQ TAB PO SCH ×2 (06:37→17:42)
[2024-02-04] MEDS: Ondansetron ODT 4 MG TAB PO PRN (08:21)
[2024-02-04] MEDS ORDERED: BuPROPion XL 150 MG ER.TAB PO SCH (09:00)
[2024-02-04] MEDS: Magnesium 2 GM/50 ML(in water) 2 GM in Premix 1 BAG IVPB SCH (09:02)
[2024-02-04] MEDS: BuPROPion XL 150 MG ER.TAB PO SCH (09:02)
[2024-02-04] MEDS: Aspirin 325 MG TAB PO SCH (09:02)
[2024-02-04] MEDS: Saccharomyces boulardii 250 MG CAP PO SCH (09:02)
[2024-02-04] MEDS: Vit A,C & E/Lutein/Minerals Tablet PO SCH (09:02)
[2024-02-04] MEDS: Clopidogrel Bisulfate 75 MG TAB PO SCH (09:02)
[2024-02-04] MEDS: Losartan 25 MG TAB PO SCH (09:03)
[2024-02-04] MEDS: Pantoprazole DR 40 MG TAB PO SCH (09:03)
[2024-02-04] MEDS: glipiZIDE XL 10 mg ER.TAB PO SCH (09:04)
[2024-02-04] MEDS: Acetaminophen 500 MG TAB PO SCH (13:46)
[2024-02-05 06:08] LABS: Anion Gap 10 mmol/L (10-20); BUN (Urea Nitrogen) 24 mg/dL (8.4-25.7); Calc. Creatinine Clearance 103 mL/min (70-130); Calcium 7.5 mg/dL (7.8-10.44); Carbon Dioxide 24 mmol/L (23-31); Chloride 106 mmol/L (98-107); Estimated GFR 86; Potassium 3.4 mmol/L (3.5-5.1); Sodium 137 mmol/L (136-145)
[2024-02-05 06:27] LABS: Glucose 46 mg/dL (83-110)
[2024-02-05] MEDS: traMADol HCl 50 MG TAB PO PRN (10:23)
[2024-02-05] MEDS: Ibuprofen 600 MG TAB PO PRN (10:23)
[2024-02-05] MEDS: Potassium Chloride 20 MEQ TAB PO SCH (17:44)
[2024-02-05 20:10] VITALS: BMI 26.0
[2024-02-05] MEDS: Dextrose 50% Abboject 50 ML SYRINGE SLOW IVP PRN (21:54)
[2024-02-05] MEDS: Dextrose 5 %-0.45 % NaCl 1,000 ML IV SCH (22:51)
[2024-02-06] MEDS: LevoFLOXacin 750 MG TAB PO SCH (05:04)
[2024-02-06] MEDS ORDERED: LevoFLOXacin 750 MG TAB PO SCH (06:00)
[2024-02-06] MEDS: Dextrose 10% in Water 1,000 ML IV SCH (06:54)
[2024-02-06] MEDS: metroNIDAZOLE 500 MG TAB PO SCH (10:21)
[2024-02-08 10:37] VITALS: BMI 26.0
[2024-02-08 11:21] VITALS: BP 145/84; TEMP 98.5
[2024-02-08] MEDS ORDERED: metFORMIN 500 MG TAB PO SCH (17:00)
== END 2024-02-08 16:03 | DRG 329 ==
LOC: ERS 18:26 → CCU 21:24 → SURG B 01-28 16:54
PROVIDERS: ADMIT Student in an Organized Health Care Education/Training Program; ATTEND Internal Medicine
PROC: 0DBM0ZZ Excision of Descending Colon, Open Approach (ICD-10-PCS; principal; 2024-01-29)
PROC: 0D1M0Z4 Bypass Descending Colon to Cutaneous, Open Approach (ICD-10-PCS; 2024-01-29)
DX: K91.89 Other postprocedural complications and disorders of digestive system (principal); R57.8 Other shock; E44.0 Moderate protein-calorie malnutrition; N17.9 Acute kidney failure, unspecified; E87.20 Acidosis, unspecified; Y83.8 Other surgical procedures as the cause of abnormal reaction of the patient, or of later complication, without mention of misadventure at the time of the procedure; I25.10 Atherosclerotic heart disease of native coronary artery without angina pectoris; E78.5 Hyperlipidemia, unspecified; G62.9 Polyneuropathy, unspecified; G47.33 Obstructive sleep apnea (adult) (pediatric); Z96.652 Presence of left artificial knee joint; E87.6 Hypokalemia; D63.8 Anemia in other chronic diseases classified elsewhere; E11.649 Type 2 diabetes mellitus with hypoglycemia without coma; I48.91 Unspecified atrial fibrillation; Z87.891 Personal history of nicotine dependence; Z95.1 Presence of aortocoronary bypass graft; Z79.899 Other long term (current) drug therapy; Z68.26 Body mass index [BMI] 26.0-26.9, adult
CPT/HCPCS: 36415; 36416; 36430; 36556; 51701; 71045; 74177; 80048; 80053; 80202; 81001; 82247; 82565; 83605; 83690; 83735; 84484; 85025; 85027; 85610; 85730; 86850; 86900; 86901; 87040; 87077; 87086; 87149; 87186; 88307; 93005; 94760; 96365; 96366; 96368; 96375; 97139; A4314; C1713; C9113; J0692; J1100; J1170; J1650; J1815; J2001; J2270; J2371; J2405; J2704; J3010; J3370; J3370-JW; J3475; J3480; J3490; J7042; J7050; J7120; J7999; P9016; Q0162; Q9967

== ENCOUNTER 2024-06-12 15:00 | Inpatient (IN) | payer MEDICARE, MEDICAID ==
[2024-06-12 15:47] LABS: #Basophils 0.07 10x3/uL (0.0-0.2); %Basophils 0.4 % (0.0-1.0); %Eosinophils 0.2 % (0.0-10.0); %Lymphocytes 5.8 % (21.0-51.0); %Neutrophils 84.4 % (42.0-75.0); Hemoglobin 13.3 g/dL (14.0-18.0); Mean Corpuscular HGB CONC 33.3 g/dL (32.0-36.0); Mean Corpuscular Hemoglobin 28.6 pg (27.0-31.0); Platelet Count 373 10x3/uL (130-400); RBC Distribution Width 13.2 % (11.5-14.5); Red Blood Cell (RBC) Count 4.65 mill/uL (4.70-6.10)
[2024-06-12 16:01] LABS: ALT (SGPT) 88 U/L (8-55); AST (SGOT) 63 U/L (5-34); Albumin 3.1 g/dL (3.4-4.8); Alkaline Phosphatase 301 U/L (40-110); Anion Gap 18 mmol/L (10-20); BUN (Urea Nitrogen) 31 mg/dL (8.4-25.7); Bilirubin, Total 1.3 mg/dL (0.2-1.2); Calc. Creatinine Clearance 0 mL/min (70-130); Calcium 9.8 mg/dL (7.8-10.44); Carbon Dioxide 21 mmol/L (23-31); Chloride 99 mmol/L (98-107); Estimated GFR 49; Globulin 5.4 g/dL (2.4-3.5); Glucose 198 mg/dL (83-110); Protein, Total 8.5 g/dL (5.8-8.1); Sodium 133 mmol/L (136-145)
[2024-06-12 16:10] LABS: INR-International Normal Ratio 1.2; Prothrombin Time 14.8 sec (12.0-14.7)
[2024-06-12 16:12] LABS: PTT 31.8 sec (22.9-36.1)
[2024-06-12] MEDS ORDERED: Ondansetron PF 4 MG/2 ML Vial IVP PRN (18:20)
[2024-06-12] MEDS ORDERED: Ipratropium/Albuterol 3 ML NEB NEB PRN (18:20)
[2024-06-12 19:39] LABS: Troponin I 0.015 ng/mL (< 0.028)
[2024-06-12] MEDS ORDERED: Sodium Chloride 0.9% 100 ML ONE (20:19)
[2024-06-12] MEDS ORDERED: Cefepime 2 GM VIAL ONE (20:19)
[2024-06-12] MEDS ORDERED: metroNIDAZOLE 500 MG (100 mL) BAG ONE (20:28)
[2024-06-12 21:25] VITALS: BMI 30.2
[2024-06-12] MEDS: Acetaminophen 325 MG TAB PO SCH (22:02)
[2024-06-12] MEDS: Lactated Ringer's 1,000 ML IV SCH (22:30)
[2024-06-12] MEDS: LevoFLOXacin 750 mg/D5W 750 MG in Premix 1 BAG IVPB SCH (22:31)
[2024-06-12] MEDS: Famotidine/PF 20 mg/2ml Vial SLOW IVP SCH (22:31)
[2024-06-13 01:36] LABS: Bacteria/HPF 1+ HPF (None Seen); Bilirubin Negative (Negative); Blood, Urine 1+ (Negative); CAUTI Indications for Culture Fever or rigors; Clarity Clear (Clear); Glucose, Urine (Dipstick) Normal (Negative); Ketone, Urine Negative (Negative); Leukocyte 25 Leu/uL (Negative); Nitrite Negative (Negative); Protein, Urine (Dipstick) 20 mg/dL (Neg-Trace); Specific Gravity, Urine 1.035 (1.002-1.036); Squamous Epithelial None Seen HPF (0-3); Urobilinogen Normal mg/dL (Less than 2); pH, Urine 5.5 (5.0-9.0)
[2024-06-13 01:37] LABS: Urine Culture Reflex No No
[2024-06-13] MEDS: metroNIDAZOLE 500 MG in Premix 1 BAG IVPB SCH (03:19)
[2024-06-13 07:17] LABS: #Basophils 0.04 10x3/uL (0.0-0.2); %Basophils 0.4 % (0.0-1.0); %Eosinophils 0.9 % (0.0-10.0); %Lymphocytes 6.7 % (21.0-51.0); %Monocytes 10.3 % (0.0-10.0); %Neutrophils 80.5 % (42.0-75.0); Hematocrit 34.7 % (42.0-52.0); Hemoglobin 11.2 g/dL (14.0-18.0); Mean Corpuscular HGB CONC 32.3 g/dL (32.0-36.0); Mean Corpuscular Hemoglobin 28.7 pg (27.0-31.0); Platelet Count 254 10x3/uL (130-400); RBC Distribution Width 13.2 % (11.5-14.5)
[2024-06-13 07:49] LABS: Anion Gap 14 mmol/L (10-20); BUN (Urea Nitrogen) 22 mg/dL (8.4-25.7); Calc. Creatinine Clearance 80 mL/min (70-130); Carbon Dioxide 20 mmol/L (23-31); Chloride 105 mmol/L (98-107); Estimated GFR 76; Glucose 134 mg/dL (83-110); Potassium 4.7 mmol/L (3.5-5.1); Sodium 134 mmol/L (136-145)
[2024-06-13 10:42] VITALS: BMI 30.2
[2024-06-13] MEDS ORDERED: traMADol HCl 50 MG TAB PO PRN (14:00)
[2024-06-13] MEDS ORDERED: Acetaminophen 500 MG TAB PO PRN (14:28)
[2024-06-13] MEDS: metFORMIN 500 MG TAB PO SCH (18:05)
[2024-06-13] MEDS ORDERED: Famotidine/PF 20 mg/2ml Vial SLOW IVP SCH (21:00)
[2024-06-13] MEDS: Metoprolol Tartrate 25 MG TAB PO SCH (21:26)
[2024-06-13] MEDS: Amiodarone 200 MG TAB PO SCH (21:30)
[2024-06-13] MEDS: Enoxaparin 40 MG (0.4 mL) SYRINGE SC SCH (21:30)
[2024-06-14 04:32] VITALS: TEMP 97.9
[2024-06-14] MEDS: Saccharomyces boulardii 250 MG CAP PO SCH (09:31)
[2024-06-14] MEDS: Ferrous Sulfate 325 MG TAB PO SCH (09:31)
[2024-06-14] MEDS: Vit A,C & E/Lutein/Minerals Tablet PO SCH (09:31)
[2024-06-14] MEDS: Pantoprazole DR 40 MG TAB PO SCH (09:32)
[2024-06-14] MEDS: BuPROPion XL 150 MG ER.TAB PO SCH (09:32)
[2024-06-14] MEDS: Clopidogrel Bisulfate 75 MG TAB PO SCH (09:32)
[2024-06-14] MEDS: Ezetimibe 10 MG TAB PO SCH (09:32)
[2024-06-14] MEDS: Tamsulosin HCl 0.4 MG CAP PO SCH (09:32)
[2024-06-14 11:48] VITALS: BP 127/74
== END 2024-06-14 14:16 | disposition home or self-care (01) | DRG 682 ==
LOC: ERS 15:00 → SURG B 18:23
PROVIDERS: ADMIT Surgery; ATTEND Surgery
DX: N17.9 Acute kidney failure, unspecified (principal); K85.90 Acute pancreatitis without necrosis or infection, unspecified; C19 Malignant neoplasm of rectosigmoid junction; E86.0 Dehydration; I69.392 Facial weakness following cerebral infarction; F32.A Depression, unspecified; E11.9 Type 2 diabetes mellitus without complications; I10 Essential (primary) hypertension; Z95.1 Presence of aortocoronary bypass graft; Z90.49 Acquired absence of other specified parts of digestive tract; Z88.0 Allergy status to penicillin; Z88.2 Allergy status to sulfonamides; Z87.891 Personal history of nicotine dependence; Z79.899 Other long term (current) drug therapy; Z93.2 Ileostomy status
CPT/HCPCS: 36415; 71045; 74174; 80048; 80053; 81001; 83690; 84484; 85025; 85610; 85730; 86850; 86900; 86901; 93005; 96365; 96375; J0692; J1650; J1956; J3490; J7120; Q9967

== ENCOUNTER 2024-08-09 05:51 | Inpatient (IN) | payer MEDICARE ==
[2024-08-08 10:22] VITALS: BMI 27.2
[2024-08-09] MEDS ORDERED: Bupivacaine PF 0.5% 30 ML VIAL ONE (06:46)
[2024-08-09] MEDS ORDERED: CEFAZOLIN 2 GM VIAL ONE (07:12)
[2024-08-09] MEDS ORDERED: Midazolam HCl 2 mg/2 ml Vial ONE (07:20)
[2024-08-09] MEDS ORDERED: Vasopressin 20 UNITS/ML VIAL ONE (07:20)
[2024-08-09] MEDS ORDERED: Ketamine In 0.9 % NaCl 50 MG/5 ML SYRINGE ONE (07:20)
[2024-08-09] MEDS ORDERED: Etomidate 40 MG (20 mL) VIAL ONE (07:20)
[2024-08-09] MEDS ORDERED: PHENYLEPHRINE-NS 100 MCG/ML 10 ML SYRINGE ONE ×2 (07:30→07:49)
[2024-08-09] MEDS ORDERED: PROPOFOL 20 ML ONE (07:30)
[2024-08-09] MEDS ORDERED: Rocuronium Bromide 10 MG/ML (10ML VIAL) ONE (07:30)
[2024-08-09] MEDS ORDERED: fentaNYL PF 100 MCG/2 ML SYRINGE ONE (07:32)
[2024-08-09] MEDS ORDERED: Lidocaine 1% PF 5 ML VIAL ONE (07:37)
[2024-08-09] MEDS ORDERED: Esmolol 100 MG/10 ML VIAL ONE (07:37)
[2024-08-09] MEDS ORDERED: Dexamethasone 4 mg/ml Vial ONE (07:48)
[2024-08-09] MEDS ORDERED: Ondansetron PF 4 MG/2 ML Vial ONE (07:48)
[2024-08-09] MEDS ORDERED: EPINEPHrine 1 MG/ML VIAL ONE (07:56)
[2024-08-09] MEDS ORDERED: SUGAMMADEX SODIUM 200 MG/2 ML VIAL ONE (08:45)
[2024-08-09 09:27] LABS: #Basophils 0.07 10x3/uL (0.0-0.2); %Eosinophils 2.6 % (0.0-10.0); %Lymphocytes 15.6 % (21.0-51.0); %Monocytes 8.7 % (0.0-10.0); %Neutrophils 70.1 % (42.0-75.0); Hematocrit 38.9 % (42.0-52.0); Hemoglobin 12.3 g/dL (14.0-18.0); Mean Corpuscular HGB CONC 31.6 g/dL (32.0-36.0); Mean Corpuscular Hemoglobin 28.1 pg (27.0-31.0); Mean Platelet Volume 11.4 fL (7.4-10.4); Platelet Count 179 10x3/uL (130-400); RBC Distribution Width 16.9 % (11.5-14.5); Red Blood Cell (RBC) Count 4.37 mill/uL (4.70-6.10)
[2024-08-09 09:40] LABS: Anion Gap 15 mmol/L (10-20); BUN (Urea Nitrogen) 20 mg/dL (8.4-25.7); Calc. Creatinine Clearance 62 mL/min (70-130); Calcium 9.5 mg/dL (7.8-10.44); Carbon Dioxide 21 mmol/L (23-31); Chloride 106 mmol/L (98-107); Estimated GFR 63; Glucose 148 mg/dL (83-110); Potassium 4.5 mmol/L (3.5-5.1); Sodium 137 mmol/L (136-145)
[2024-08-09] MEDS ORDERED: Morphine 2 MG/ML VIAL SLOW IVP PRN (09:53)
[2024-08-09] MEDS ORDERED: Dextrose 5% in Water 1,000 ML IV PRN (09:53)
[2024-08-09] MEDS ORDERED: Morphine 4 MG/ML VIAL SLOW IVP PRN (09:53)
[2024-08-09] MEDS ORDERED: hydrALAZINE 20 MG/ML VIAL SLOW IVP PRN (09:53)
[2024-08-09] MEDS ORDERED: traMADol HCl 50 MG TAB PO PRN (09:53)
[2024-08-09] MEDS ORDERED: Glucagon 1 MG/ML KIT IM PRN (09:53)
[2024-08-09] MEDS ORDERED: Dextrose 50% Abboject 50 ML SYRINGE SLOW IVP PRN (09:53)
[2024-08-09] MEDS: Ketorolac Tromethamine 30 MG (1 mL) VIAL IVP SCH (12:18)
[2024-08-09] MEDS: Acetaminophen 500 MG TAB PO SCH (12:18)
[2024-08-09] MEDS: Insulin Lispro 100 UNIT/ML 10 ML VIAL SC PRN (12:19)
[2024-08-09] MEDS: Lactated Ringer's 1,000 ML IV SCH (12:20)
[2024-08-09] MEDS: Metoprolol Tartrate 25 MG TAB PO SCH (20:34)
[2024-08-09] MEDS: Lisinopril 2.5 MG TAB PO SCH (20:34)
[2024-08-09] MEDS: Mirtazapine 15 MG TAB PO SCH (20:35)
[2024-08-09] MEDS: Gabapentin 300 MG CAP PO SCH (20:35)
[2024-08-09] MEDS: Enoxaparin 40 MG (0.4 mL) SYRINGE SC SCH (20:36)
[2024-08-10 06:01] LABS: #Basophils Less than 0.03 10x3/uL (0.0-0.2); #Eosinophils Less than 0.03 10x3/uL (0.0-0.7); %Basophils 0.2 % (0.0-1.0); %Lymphocytes 8.6 % (21.0-51.0); %Monocytes 7.1 % (0.0-10.0); %Neutrophils 83.4 % (42.0-75.0); Hematocrit 33.2 % (42.0-52.0); Hemoglobin 10.7 g/dL (14.0-18.0); Mean Corpuscular HGB CONC 32.2 g/dL (32.0-36.0); Mean Corpuscular Hemoglobin 28.2 pg (27.0-31.0); Mean Corpuscular Volume 87.6 fL (78.0-98.0); Mean Platelet Volume 11.5 fL (7.4-10.4); Platelet Count 171 10x3/uL (130-400); RBC Distribution Width 16.7 % (11.5-14.5); Red Blood Cell (RBC) Count 3.79 mill/uL (4.70-6.10)
[2024-08-10 06:15] LABS: Anion Gap 13 mmol/L (10-20); BUN (Urea Nitrogen) 24 mg/dL (8.4-25.7); Calc. Creatinine Clearance 70 mL/min (70-130); Calcium 8.6 mg/dL (7.8-10.44); Carbon Dioxide 18 mmol/L (23-31); Chloride 110 mmol/L (98-107); Estimated GFR 73; Glucose 138 mg/dL (83-110); Potassium 4.1 mmol/L (3.5-5.1); Sodium 137 mmol/L (136-145)
[2024-08-10] MEDS: Pantoprazole DR 40 MG TAB PO SCH (08:27)
[2024-08-10] MEDS: Ezetimibe 10 MG TAB PO SCH (08:27)
[2024-08-10] MEDS: BuPROPion XL 150 MG ER.TAB PO SCH (08:27)
[2024-08-10] MEDS: Tamsulosin HCl 0.4 MG CAP PO SCH (08:27)
[2024-08-10] MEDS: Clopidogrel Bisulfate 75 MG TAB PO SCH (08:27)
[2024-08-10] MEDS ORDERED: Ibuprofen 600 MG TAB PO PRN (10:35)
[2024-08-10 10:50] VITALS: BMI 27.2
[2024-08-10 14:36] VITALS: BP 101/62; TEMP 97.4
[2024-08-10] MEDS ORDERED: metFORMIN 500 MG TAB PO SCH (17:00)
[2024-08-11] MEDS ORDERED: Vit A,C & E/Lutein/Minerals Tablet PO SCH (09:00)
== END 2024-08-10 14:30 | disposition home or self-care (01) | DRG 331 ==
LOC: SURG A 05:51
PROVIDERS: ADMIT Specialist; ATTEND Specialist
PROC: 0DBB0ZZ Excision of Ileum, Open Approach (ICD-10-PCS; principal; 2024-08-09)
DX: Z43.2 Encounter for attention to ileostomy (principal); Z87.19 Personal history of other diseases of the digestive system; Z90.49 Acquired absence of other specified parts of digestive tract; Z95.1 Presence of aortocoronary bypass graft; Z98.890 Other specified postprocedural states; Z88.2 Allergy status to sulfonamides; Z88.0 Allergy status to penicillin; Z79.899 Other long term (current) drug therapy
CPT/HCPCS: 36415; 36416; 80048; 85025; A4314; J0171; J0665; J1100; J1650; J1815; J1885; J2250; J2405; J2704; J3490; J7120